=== PATIENT | male | born 1985 | race Caucasian/White ===

== ENCOUNTER 2025-04-16 10:57 | Outpatient (CLI) | payer BC, SELFPAY ==
[2025-04-16 14:06] LABS: HCT 46.8 % (40.0-50.0); HGB 16.2 g/dL (13.5-17.5); MCH 31.5 pg (27.0-33.0); MCHC 34.6 % (32.0-36.0); MCV 91 fL (80-95); MPV 10.0 fL (8.0-11.0); Platelet Count 250 10^3/uL (130-400); RBC 5.15 10^6/uL (4.36-5.78); RDW 11.5 % (11.8-14.1); RDW-SD 38.4 fL; WBC 6.99 10^3/uL (4.4-10.8)
[2025-04-16 14:44] LABS: ALT 61 U/L (16-63); AST 33 U/L (15-37); Albumin 4.1 g/dL (3.4-5.0); Alkaline Phosphatase 51 U/L (46-116); Anion Gap 7.8 mmol/L (3-11); BUN 16 mg/dL (7-18); Bilirubin, Total 0.8 mg/dL (0.2-1.0); CO2 31.2 mmol/L (21.0-32.0); Calcium 9.2 mg/dL (8.5-10.1); Chloride 102 mmol/L (98-107); Estimated GFR 72.56 (mL/min/1.73m2); Glucose 98 mg/dL (74-106); Magnesium 2.3 mg/dL (1.8-2.4); Potassium 3.6 mmol/L (3.5-5.1); Sodium 141 mmol/L (136-145); TSH (W/Ref FT4) 1.34 uIU/mL (0.36-3.74); Total Protein 7.5 g/dL (6.4-8.2); Vitamin B12 872 pg/mL (193-986); Vitamin D 25 Total 31 ng/mL (30-100)
== END 2025-04-16 10:58 | disposition home or self-care (01) ==
PROVIDERS: PCP Nurse Practitioner Family; Referring Provider Nurse Practitioner Family; Visit Provider Nurse Practitioner Family
DX: R25.1 Tremor, unspecified (principal)
CPT/HCPCS: 36415; 80053; 82306; 85027; 82607; 83735; 84443